=== PATIENT | male | born 1985 | race Caucasian/White ===

== ENCOUNTER 2021-02-27 19:34 | Inpatient (IN) | payer MEDICAID, OTHER ==
[~2021-02-27] VITALS: Ht 165.1 cm; Wt 72.7 kg
[2021-02-27] MEDS: DiphenhydrAMINE HCL 50 MG/ML VIAL IM ONE ×2 (21:30→21:59)
[2021-02-27] MEDS: HALOPERIDOL LACTATE 5 MG/ML VIAL IM ONE ×2 (21:30→21:58)
[2021-02-27] MEDS: LORazepam 2 MG/ML VIAL IM ONE ×2 (21:30→21:59)
[2021-02-27 22:22] LABS: AMPHET/METH SCREEN,URINE NEGATIVE (NEGATIVE); BARBITURATE SCREEN, URINE NEGATIVE (NEGATIVE); BENZODIAZEPINES SCREEN,URINE NEGATIVE (NEGATIVE); CANNABINOID SCREEN,URINE NEGATIVE (NEGATIVE); COCAINE SCREEN,URINE NEGATIVE (NEGATIVE); METHADONE SCREEN, URINE NEGATIVE (NEGATIVE); OPIATE SCREEN,URINE NEGATIVE (NEGATIVE)
[2021-02-27 22:23] LABS: PHENCYCLIDINE SCREEN,URINE NEGATIVE (NEGATIVE)
[2021-02-27 22:31] LABS: BASOPHILS % (AUTO) 0.3 % (0.0-2.0); EOSINOPHILS % (AUTO) 0.5 % (1.0-6.0); HEMATOCRIT 45.7 % (41-53); HEMOGLOBIN 15.9 g/dL (13.5-17.5); LYMPHOCYTES # (AUTO) 1.3 K/uL (1.0-4.8); LYMPHOCYTES % (AUTO) 11.6 % (22.0-44.0); MEAN CORPUSCULAR HGB CONC 34.7 G/dL (31.0-37.0); MEAN CORPUSCULAR VOLUME 87 fL (80-100); MONOCYTES # (AUTO) 0.4 K/uL (0.1-1.0); MONOCYTES % (AUTO) 3.3 % (2.0-9.0); NEUTROPHILS # (AUTO) 9.7 K/uL (1.8-7.7); NEUTROPHILS % (AUTO) 84.3 % (40.0-70.0); PLATELET COUNT (AUTO) 236 K/uL (150-450); RED BLOOD CELL COUNT(AUTO) 5.28 MIL/uL (4.50-5.90); RED CELL DISTRIBUTION WIDTH 12.5 % (11.5-14.5)
[2021-02-27 22:41] LABS: ANION GAP 14 mmol/L (8-16); CALCIUM, TOTAL 9.2 mg/dL (8.8-10.5); CARBON DIOXIDE 24 mmol/L (22-29); CHLORIDE 102 mmol/L (98-107); CREATININE 0.79 mg/dL (0.60-1.30); GLOMERULAR FILTR. RATE CALC > 60 mL/min (>60); GLUCOSE,RANDOM 105 mg/dL (70-110); POTASSIUM 3.8 mmol/L (3.5-5.1); SODIUM SERUM 140 mmol/L (136-145); UREA NITROGEN, BLOOD 9 mg/dL (7-18)
[2021-02-27 22:47] LABS: ALANINE AMINOTRANSFERASE 37 U/L (12-78); ALBUMIN 4.6 g/dL (3.4-5.0); ALKALINE PHOSPHATASE 83 U/L (46-116); ASPARTATE AMINOTRANSFERASE 31 U/L (15-37); BILIRUBIN,TOTAL 1.6 mg/dL (0.1-1.0); TOTAL PROTEIN, SERUM 7.8 g/dL (6.4-8.2)
[2021-02-27] MEDS ORDERED: HALOPERIDOL 5 MG TABLET PO PRN (23:15)
[2021-02-27 23:46] LABS: COVID AG,FIA SOURCE NASOPHARYNGEAL
[2021-02-28] MEDS ORDERED: DiphenhydrAMINE HCL 25 MG CAPSULE ONE (01:39)
[2021-02-28] MEDS ORDERED: DiphenhydrAMINE HCL 50 MG CAPSULE ONE (01:39)
[2021-02-28] MEDS ORDERED: LORazepam 1 MG TABLET ONE (01:39)
[2021-02-28] MEDS ORDERED: LORazepam 2 MG/ML VIAL IM ONE (01:45)
[2021-02-28] MEDS ORDERED: HALOPERIDOL LACTATE 5 MG/ML VIAL IM ONE (01:45)
[2021-02-28] MEDS ORDERED: DiphenhydrAMINE HCL 50 MG/ML VIAL IM ONE (01:45)
[2021-02-28 06:34] VITALS: BP 104/58
[2021-02-28] MEDS ORDERED: BENZOCAINE/MENTHOL LOZENGE PO PRN (08:30)
[2021-02-28] MEDS ORDERED: MAG HYDROX/AL HYDROX/SIMETH ES 30 ML SUSPENSION UDCUP PO PRN (08:30)
[2021-02-28] MEDS ORDERED: ONDANSETRON HCL 4 MG TABLET PO PRN (08:30)
[2021-02-28] MEDS ORDERED: LOPERAMIDE HCL 2 MG CAPSULE PO PRN (08:30)
[2021-02-28] MEDS ORDERED: ALBUTEROL SULFATE HFA 90 MCG/PUFF 8 GM INHALER IH PRN (08:30)
[2021-02-28] MEDS ORDERED: ACETAMINOPHEN 325 MG TABLET PO PRN (08:30)
[2021-02-28] MEDS ORDERED: CloNIDine HCL 0.1 MG TABLET PO PRN (08:30)
[2021-02-28] MEDS ORDERED: BACITRACIN 28 GM OINTMENT TP PRN (08:30)
[2021-02-28] MEDS ORDERED: MAGNESIUM HYDROXIDE SUSPENSION 30 ML UDCUP PO PRN (08:30)
[2021-02-28] MEDS ORDERED: PETROLATUM,WHITE 28 GM JELLY TP PRN (08:30)
[2021-02-28] MEDS ORDERED: IBUPROFEN 600 MG TABLET PO PRN (08:30)
[2021-02-28] MEDS ORDERED: DOCUSATE SODIUM 100 MG CAPSULE PO PRN (08:30)
[2021-02-28] MEDS ORDERED: OMEPRAZOLE 20 MG CAPSULE PO PRN (08:30)
[2021-02-28 09:03] VITALS: BP 115/71
[2021-02-28 16:11] VITALS: BP 140/80
[2021-03-01 02:29] VITALS: BP 148/98
[2021-03-01 08:05] LABS: FREE T4 (FREE THYROXINE) 1.04 ng/dL (0.76-1.46); THYROID STIMULATING HORMONE 2.64 uIU/mL (0.36-3.74)
[2021-03-01 09:03] VITALS: BP 140/97
[2021-03-01 16:00] VITALS: BP 138/85
[2021-03-01] MEDS: MICONAZOLE NITRATE 2% 30 GM CREAM TP SCH (16:09)
[2021-03-01] MEDS: ZOLPIDEM TARTRATE 10 MG TABLET PO PRN (22:16)
[2021-03-02 02:57] VITALS: BP 135/95
[2021-03-02 04:10] VITALS: BP 138/87
[2021-03-02] MEDS: MICONAZOLE NITRATE 2% 30 GM CREAM TP SCH ×3 (08:35→20:50)
[2021-03-02 09:31] VITALS: BP 143/93
[2021-03-02] MEDS: RisperiDONE 1 MG TABLET PO SCH (17:00)
[2021-03-02 18:26] VITALS: BP 137/91
[2021-03-02] MEDS: ZOLPIDEM TARTRATE 10 MG TABLET PO PRN (22:01)
[2021-03-03] MEDS: LORazepam 2 MG TABLET PO PRN (03:19)
[2021-03-03 03:20] VITALS: BP 146/86
[2021-03-03] MEDS: RisperiDONE 1 MG TABLET PO SCH ×2 (08:47→17:00)
[2021-03-03] MEDS: MICONAZOLE NITRATE 2% 30 GM CREAM TP SCH ×2 (08:47→17:00)
[2021-03-03 10:12] VITALS: BP 140/90
[2021-03-03 19:37] VITALS: BP 139/89
[2021-03-04 00:56] VITALS: BP 123/90
[2021-03-04 08:29] VITALS: BP 127/86
[2021-03-04] MEDS: RisperiDONE 1 MG TABLET PO SCH ×2 (09:00→16:41)
[2021-03-04] MEDS: MICONAZOLE NITRATE 2% 30 GM CREAM TP SCH ×2 (09:00→16:41)
[2021-03-04 17:45] VITALS: BP 149/91
[2021-03-05] MEDS: ZOLPIDEM TARTRATE 10 MG TABLET PO PRN (00:06)
[2021-03-05 00:30] VITALS: BP 111/77
[2021-03-05] MEDS: LORazepam 2 MG TABLET PO PRN (07:33)
[2021-03-05 08:01] LABS: BASOPHILS % (AUTO) 0.9 % (0.0-2.0); EOSINOPHILS % (AUTO) 10.2 % (1.0-6.0); HEMATOCRIT 46.4 % (41-53); HEMOGLOBIN 16.1 g/dL (13.5-17.5); LYMPHOCYTES # (AUTO) 1.8 K/uL (1.0-4.8); LYMPHOCYTES % (AUTO) 30.7 % (22.0-44.0); MEAN CORPUSCULAR HEMOGLOBIN 30.1 pg (26.0-34.0); MEAN CORPUSCULAR HGB CONC 34.7 G/dL (31.0-37.0); MEAN CORPUSCULAR VOLUME 87 fL (80-100); MONOCYTES # (AUTO) 0.6 K/uL (0.1-1.0); MONOCYTES % (AUTO) 10.1 % (2.0-9.0); NEUTROPHILS # (AUTO) 2.9 K/uL (1.8-7.7); NEUTROPHILS % (AUTO) 48.1 % (40.0-70.0); PLATELET COUNT (AUTO) 230 K/uL (150-450); RED BLOOD CELL COUNT(AUTO) 5.35 MIL/uL (4.50-5.90); RED CELL DISTRIBUTION WIDTH 12.5 % (11.5-14.5)
[2021-03-05 08:25] LABS: ALANINE AMINOTRANSFERASE 42 U/L (12-78); ALBUMIN 4.2 g/dL (3.4-5.0); ALKALINE PHOSPHATASE 74 U/L (46-116); ANION GAP 6 mmol/L (8-16); ASPARTATE AMINOTRANSFERASE 31 U/L (15-37); BILIRUBIN,TOTAL 1.5 mg/dL (0.1-1.0); CALCIUM, TOTAL 9.3 mg/dL (8.8-10.5); CARBON DIOXIDE 29 mmol/L (22-29); CHLORIDE 105 mmol/L (98-107); CREATININE 0.88 mg/dL (0.60-1.30); GLOMERULAR FILTR. RATE CALC > 60 mL/min (>60); GLUCOSE,RANDOM 93 mg/dL (70-110); PHOSPHORUS 3.9 mg/dL (2.5-4.9); POTASSIUM 4.1 mmol/L (3.5-5.1); SODIUM SERUM 140 mmol/L (136-145); TOTAL PROTEIN, SERUM 7.4 g/dL (6.4-8.2); UREA NITROGEN, BLOOD 12 mg/dL (7-18)
[2021-03-05 08:26] VITALS: BP 133/88
[2021-03-05] MEDS: RisperiDONE 1 MG TABLET PO SCH (09:00)
[2021-03-05] MEDS: MICONAZOLE NITRATE 2% 30 GM CREAM TP SCH (09:29)
[2021-03-05] MEDS ORDERED: RISP1TAB48 PO (10:02)
== END 2021-03-05 14:01 | disposition home or self-care (01) | DRG 750 ==
LOC: EMS 19:34 → B3A 02-28
PROVIDERS: ADMIT Psychiatry & Neurology Psychiatry; ATTEND Psychiatry & Neurology Psychiatry
DX: F25.9 Schizoaffective disorder, unspecified (principal); R45.850 Homicidal ideations; Z20.822 Contact with and (suspected) exposure to COVID-19; F41.9 Anxiety disorder, unspecified; G47.00 Insomnia, unspecified; K59.00 Constipation, unspecified; Z87.891 Personal history of nicotine dependence; Z91.14 Patient's other noncompliance with medication regimen; Z91.19 Patient's noncompliance with other medical treatment and regimen
CPT/HCPCS: 80053; 80061; 83735; 84100; 84439; 84443; 85025; 86592; 99285; G0480; J1200; J1630; J2060